=== PATIENT | female | born 1990 | race Caucasian/White ===

== ENCOUNTER 2016-05-23 18:43 | Emergency (ER) | payer BC ==
[~2016-05-23] VITALS: Ht 165.1 cm; Wt 72.6 kg
[~2016-05-23 18:43] MED LIST: ACETAMINOPHEN-1 EAC1 PO; CIPROFLOXACIN500 M1 PO; COLACE100 MG PO; DERMOPLAST SPRA56 ML TOP; FLAGYL500 MG PO; HYDROCORTISONE30 G9 TOP; IBUPROFEN 400400 M1 PO; IBUPROFEN 600600 M1 PO; LANOLIN56 GM TOP; NOHOMEMEDICATIONS; PERCOCET 5-3251 EACH PO; TUCKS MEDICATE1 EAC1; TUCKS MEDICATE1 EAC1 TOP
[2016-05-23 19:10] LABS: ABSOLUTE NEUTROPHILS 5.5 thou/uL (1.4-8.2); BASOPHILS 0.5 % (0.0-2.0); EOSINOPHILS 4.1 % (0.0-3.0); HEMATOCRIT 39.6 % (37.0-47.0); HEMOGLOBIN 13.5 gm/dL (12.0-15.0); LYMPHOCYTES 31.5 % (24.0-44.0); MANUAL DIFF NO; MCH 31.2 pg (26.0-34.0); MCHC 34.2 % (28.0-37.0); MCV 91.2 fL (80.0-100.0); PLATELET COUNT 341 thou/uL (150-400); POLYS 56.9 % (36.0-66.0); RBC 4.34 mil/uL (4.20-5.00); RDW 12.9 % (10.5-14.5); WBC 9.7 thou/uL (4.0-11.0)
[2016-05-23 19:15] LABS: ANION GAP 10 mmol/L (7-16); BUN 11 mg/dL (7-18); CALCIUM 8.5 mg/dL (8.5-10.1); CHLORIDE 104 mmol/L (98-107); CO2 25 mmol/L (21-32); CREATININE 0.7 mg/dL (0.6-1.3); GLUCOSE 93 mg/dL (70-99); SODIUM 139 mmol/L (136-145)
[2016-05-23 19:21] LABS: ALBUMIN 4.1 g/dL (3.4-5.0); ALKALINE PHOSPHATASE 116 U/L (46-116); DIRECT BILIRUBIN < 0.1 mg/dL (<0.1-0.3); SGOT 15 U/L (15-37); SGPT 20 U/L (30-65); TOTAL BILIRUBIN 0.4 mg/dL (<0.1-1.0); TOTAL PROTEIN 7.7 g/dL (6.4-8.2)
[2016-05-23 21:02] LABS: URINE BILIRUBIN NEGATIVE (Negative); URINE BLOOD 2+ (Negative); URINE COLOR YELLOW; URINE GLUCOSE-RANDOM* NEGATIVE (Negative); URINE KETONES NEGATIVE (Negative); URINE NITRITE NEGATIVE (Negative); URINE PROTEIN (DIPSTICK) NEGATIVE (Negative); URINE UROBILINOGEN 0.2 E.U./dl (0.2-1.0)
[2016-05-23 21:10] LABS: BACTERIA 1-9 Few /HPF (None Seen); CASTS None Seen /LPF (None Seen); CRYSTALS None Seen /LPF (None Seen); SQUAMOUS 0-3 Few /LPF (0-3); URINE RBC 0-2 Rare /HPF (0-2); URINE WBC None Seen /HPF (0-5)
[2016-05-23] MEDS ORDERED: COLACE100 MG PO (21:33)
[2016-05-23] MEDS ORDERED: IBUPROFEN 600600 M1 PO (21:33)
[2016-05-23] MEDS ORDERED: ZOVIRAX400 MG PO (21:34)
[2016-05-23] MEDS ORDERED: HYDROCODONE-AP1 EAC6 PO (21:34)
== END 2016-05-23 22:02 | disposition home or self-care (01) ==
LOC: ER 18:43
PROVIDERS: Nurse Practitioner
DX: K59.00 Constipation, unspecified (principal); B02.9 Zoster without complications

== ENCOUNTER 2018-05-31 19:02 | Emergency (ER) | payer BC ==
[~2018-05-31] VITALS: Ht 162.6 cm; Wt 77.1 kg
[~2018-05-31 19:02] MED LIST changes: +HYDROCODONE-AP1 EAC6 PO; +ZOVIRAX400 MG PO
[2018-05-31 19:30] LABS: BASOPHILS 0.5 % (0.0-2.0); HEMATOCRIT 38.5 % (37.0-47.0); HEMOGLOBIN 13.5 gm/dL (12.0-15.0); LYMPHOCYTES 38.4 % (24.0-44.0); MCH 31.6 pg (26.0-34.0); MCHC 35.2 g/dL (28.0-37.0); MCV 89.8 fL (80.0-100.0); MONOCYTES 7.3 % (1.0-8.0); PLATELET COUNT 343 thou/uL (150-400); POLYS 50.8 % (36.0-66.0); RBC 4.29 mil/uL (4.20-5.00); RDW 12.5 % (10.5-14.5); WBC 9.9 thou/uL (4.0-11.0)
[2018-05-31 19:33] LABS: URINE BILIRUBIN NEGATIVE (Negative); URINE BLOOD NEGATIVE (Negative); URINE CLARITY CLEAR; URINE COLOR YELLOW; URINE GLUCOSE-RANDOM* NEGATIVE (Negative); URINE KETONES NEGATIVE (Negative); URINE LEUKOCYTES-REFLEX NEGATIVE (Negative); URINE NITRITE-REFLEX NEGATIVE (Negative); URINE PROTEIN (DIPSTICK) NEGATIVE (Negative); URINE UROBILINOGEN 0.2 E.U./dl (0.2-1.0)
[2018-05-31 19:37] LABS: CALCIUM 8.8 mg/dL (8.5-10.1); CREATININE 0.8 mg/dL (0.6-1.0); POTASSIUM 3.7 mmol/L (3.5-5.1)
[2018-05-31 19:43] LABS: TOTAL BILIRUBIN 0.4 mg/dL (<0.1-1.0); TOTAL PROTEIN 7.6 g/dL (6.4-8.2)
[2018-05-31] MEDS ORDERED: ANUSOL-HC25 MG RECTAL (21:23)
[2018-05-31] MEDS ORDERED: ACETAMINOPHEN-1 EAC1 PO (21:23)
[2018-05-31 22:20] VITALS: BP 112/59
== END 2018-05-31 22:20 | disposition home or self-care (01) ==
LOC: ER 19:02
PROVIDERS: Nurse Practitioner Family
DX: K60.4 Rectal fistula (principal); K64.5 Perianal venous thrombosis